=== PATIENT | male | born 1955 | race Caucasian/White ===

== ENCOUNTER → 2020-09-06 12:02 | Outpatient (CLI) | payer OTHER, SELFPAY ==
--- NOTE | ~2020-09-06 | CT_ITS ---
EXAMINATION:CT lung screening DATE: 09/06/2020 12:15 INDICATION: Personal history of tobacco dependence. Smoker who quit 10 years ago with 60 pack year hi story. TECHNIQUE: Computed tomography (CT) of the chest was performed without intravenous contrast. Automate d exposure control and iterative reconstruction technique were employed. The dose-length product (DLP ) was 139.99 mGy-cm. COMPARISON: None. FINDINGS: There is mild emphysema. A calcified right lung nodule and calcified right hilar lymph node s are consistent with old granulomatous disease. There is a 3 mm nodule in left lower lobe. There is a 3 mm nodule at left major fissure. No pleural effusion. The heart size is normal. No pericardial ef fusion. There are coronary artery calcifications. There is mild thoracic spondylosis. IMPRESSION: 1. Lung-RADS category 2: Benign appearance or behavior. Continue annual screening with noncontrast lo w-dose chest CT in 12 months. Reviewed, dictated and finalized at location A. HER HAND IMPRESSION: 1. Lung-RADS category 2: Benign appearance or behavior. Continue annual screeni ng with noncontrast low-dose chest CT in 12 months.
== END ==
PROVIDERS: PCP Internal Medicine; Visit Provider Internal Medicine
DX: Z12.2 Encounter for screening for malignant neoplasm of respiratory organs (principal); Z87.891 Personal history of nicotine dependence
CPT/HCPCS: 71271

== ENCOUNTER → 2020-10-07 12:57 | Outpatient (CLI) | payer OTHER, SELFPAY ==
--- NOTE | ~2020-10-07 | XR_ITS ---
EXAMINATION: XR sacroiliac joints min 3V DATE: 10/07/2020 13:49 INDICATION: Left sacroiliac joint pain. TECHNIQUE: 3 views of the sacroiliac joints were obtained. COMPARISON: None. FINDINGS: Bone alignment is normal. No fracture. There is mild osteoarthritis of the sacroiliac joint s. No evidence of inflammatory arthropathy. IMPRESSION: 1. Mild osteoarthritis of the sacroiliac joints. Reviewed, dictated and finalized at location A.
--- NOTE | ~2020-10-07 | XR_ITS ---
XR lumbar spine 6V w bending 10/07/2020 13:50 Indication: Low back pain Procedure: 7 views lumbar spine including flexion/extension views. Comparison: No prior studies for comparison. Findings: Vertebral body heights are maintained. No fracture, subluxation or dislocation. Mild disc n arrowing at L5-S1. No evidence for spondylolisthesis. Sacral foramen are symmetric. Impression: 1: Mild lumbar spondylosis. Reviewed, dictated and finalized at location B. Impression: 1: Mild lumbar spondylosis.
== END ==
PROVIDERS: PCP Internal Medicine; Visit Provider Internal Medicine
DX: M54.5 Low back pain (principal); M54.32 Sciatica, left side; M47.898 Other spondylosis, sacral and sacrococcygeal region; M47.816 Spondylosis without myelopathy or radiculopathy, lumbar region
CPT/HCPCS: 72114; 72202

== ENCOUNTER → 2020-11-23 10:28 | Outpatient (CLI) | payer OTHER, SELFPAY ==
--- NOTE | ~2020-11-23 | XR_ITS ---
XR UGIAC w barium swallow DATE: 11/23/2020 12:25 INDICATION: Dysphagia. Feels like her bowel stuck in right throat during swallowing TECHNIQUE: Rapid sequence spot radiographs in multiple projections during oral ingestion of barium. A ir-contrast examination of the upper gastrointestinal tract, including spot and overhead radiographs 1.9 minutes fluoroscopy time DAP: [id number] total images COMPARISON: None FINDINGS: There is normal deglutition and esophageal peristalsis. No stricture, mucosal fold thickening, erosion, ulceration or intraluminal mass lesion of the esophag us, stomach or duodenum is evident. Approximately 3.5 x 4.4 cm diverticulum of the second part of the duodenum. IMPRESSION: Duodenal diverticulum; otherwise negative Reviewed, dictated and finalized at Location A. Reviewed, dictated and finalized at location B.
== END ==
PROVIDERS: PCP Internal Medicine; Visit Provider Internal Medicine
DX: R13.10 Dysphagia, unspecified (principal); K57.10 Diverticulosis of small intestine without perforation or abscess without bleeding
CPT/HCPCS: 74246

== ENCOUNTER → 2022-05-11 11:38 | Outpatient (CLI) | payer MEDICARE, SELFPAY ==
--- NOTE | ~2022-05-11 | CT_ITS ---
EXAMINATION: CT lung screening DATE: 05/11/2022 11:47 INDICATION: Personal history of nicotine dependence . Lung cancer screening. TECHNIQUE: Computed tomography (CT) of the chest was performed without intravenous contrast. Addition al 3D reconstructions utilizing coronal maximum intensity projection (MIP) were performed. Automated exposure control and iterative reconstruction technique were employed. The dose-length product was 14 3.58 mGy-cm. COMPARISON: 09/06/2020 FINDINGS: Mild emphysema. Small calcified nodules at the bilateral apices and small calcified right hilar lymph nodes consistent with old granulomatous disease. Mild linear discoid atelectasis at the right lower lobe. Unchanged 3 mm nodule at the superior segment of the left lower lobe. A few unchanged small int rafissural lymph nodes along the left major fissure the largest measuring 3 mm in maximal thickness. No new or enlarging pulmonary nodules, pneumonia, pulmonary edema or pleural effusion. Heart size is normal. Small amount of atherosclerotic coronary artery calcification. No pericardial effusion. Loulou l caliber thoracic aorta. No pathologically enlarged thoracic lymphadenopathy. Visualized upper abdom en is unremarkable. Mild thoracic spondylosis. IMPRESSION: 1. Lung-RADS category 2: Benign appearance or behavior. Continue annual screening with noncontrast lo w-dose chest CT in 12 months. Reviewed, dictated and finalized at location B. IMPRESSION: 1. Lung-RADS category 2: Benign appearance or behavior. Continue annual screeni ng with noncontrast low-dose chest CT in 12 months.
== END ==
PROVIDERS: PCP Internal Medicine; Visit Provider Internal Medicine
DX: Z12.2 Encounter for screening for malignant neoplasm of respiratory organs (principal); Z87.891 Personal history of nicotine dependence
CPT/HCPCS: 71271

== ENCOUNTER 2022-06-25 02:06 | Day surgery (SDC) | payer MEDICARE, SELFPAY ==
--- NOTE | 2022-06-11 11:21 | PC.NURSE ---
Report to the Outpatient Waiting Room, entrance under the green pavilion located off [facility], at time _1130 on date _06/25/22 . Planned Procedure Time: __1330 . Time changes happen often and if your time is changed the preop area will call you the afternoon before. - You and your visitor will be asked to self-screen and do not enter if you have any COVID symptoms. - Only one visitor is requested with a max of two and NO children visitors are allowed at this time. - The patient visitor may be requested to leave or wait in car when not with patient due to distancing restrictions. - A mask is optional within the hospital. Patients may have clear liquids (water, carbonated beverages, clear teas, apple juice) until 3 hours prior to surgery with a maximum of 20 ounces. - No food from midnight until time of surgery - Infants may have breast milk until 4 hours before surgery, formula 6 hours prior to surgery. - Children will be allowed to drink immediately following surgery. If applicable, please bring a bottle or sippy cup to assist with drinking. Juice, water, soda, and popsicles are readily available. For infants on formula, please bring formula the day of surgery. Pacifiers are allowed. Take the following medications with a SIP of water the morning of surgery: __NONE Medications to discontinue per physician _ALL VITAMINS AND SUPPLEMENTS 3 DAYS PRE OP Date to take last dose____06/21/22 HIBICLENS SHOWER MORNING OF SURGERY Please no make-up, nail botswanan, hairspray, perfume, deodorant, or body powder the day of surgery. No jewelry (including any body piercings) or valuables the day of surgery, leave them at home. Please take a shower or bath the night before, or the morning of, surgery with an antibacterial soap. Wear comfortable, loose fitting clothing. Children are encouraged to wear pajamas. - Jewelry must be removed prior to entering the operating room. Rings and piercings that are not removed may be cut off. - The hospital will not accept responsibility for valuables. - Please leave all valuables, including medications, at home the day of surgery. If you are going home after surgery, a licensed shuttle bus driver must drive you home. - NO public transportation without another adult if you receive anesthesia. - We recommend that an adult stay with you for 24 hours following discharge. - We also recommend that you do not drive, make important decision, drink alcoholic beverages, or take any drugs that were not prescribed by your health care provider for at least 24 hours after your discharge time. For Pediatric surgeries, we recommend two adults accompany the child home. Follow any additional instructions given to you from your surgeon. If you or anyone in your household have experienced Covid symptoms in the past week, please notify your surgeon or the nurse liaison at the phone number below for possible testing. Telephone instructions given to __PATIENT and asked if any additional questions and then verbalized understanding. Patient advised to call surgeon office or pre surgery nurse liaison [phone] if any additional questions.
[2022-06-11 11:27] VITALS: BMI 25.8
[2022-06-25] VITALS (9 sets, daily range): BP systolic 95–140; BP diastolic 53–85; PULSE 69–84; RESP 12–16; TEMP 36.6–37.2; O2SAT 97–100
[2022-06-25] MEDS: ACETAMINOPHEN 500 MG TABLET 1000 MG PO (11:54)
[2022-06-25] MEDS: LACTATED RINGERS 1,000 ML 30 ML IV CONT (12:21)
[2022-06-25] MEDS: KETOROLAC 15 MG/ML VIAL (*BKC) IV PUSH (12:22)
--- NOTE | 2022-06-25 12:45 | WPDANESEPPF ---
Anes - Initial Pre Proc Eval Procedure: Operation Date: 06/25/22 13:30 Proposed Procedures p Ventral Hernia Repair with Mesh - Rubén Pendleton DO Date/Time: 06/25/22 12:45 Surgeon: Rubén Pendleton DO Pre Op Diagnosis: ventral hernia Patient Data Age: 67 Gender: M Height: 1.78 m Weight: 81.8 kg Last Vital Signs Temp 37.2 C 06/25/22 11:52 Pulse 78 06/25/22 11:52 Resp 16 06/25/22 11:52 BP 138/71 06/25/22 11:52 Pulse Ox 97 06/25/22 11:52 O2 Del Method Room Air 06/25/22 11:52 Allergies Allergy/AdvReac Type Severity Reaction Status Date / Time No Known Allergies Allergy Verified 06/25/22 12:01 Home Medications Medication Instructions Recorded Confirmed Type cholecalciferol (vitamin D3) 25 25 mcg PO DAILY 11/16/20 06/25/22 History mcg (1,000 unit) capsule folic acid 800 mcg tablet 0.8 mg PO DAILY 11/16/20 06/25/22 History mecobalamin (vitamin B12) 1,000 1,000 mcg sublingual DAILY 11/16/20 06/25/22 History mcg disintegrating tablet,sublingual nystatin-triamcinolone 100,000 1 applic topical BID #30 grams 10/20/21 06/11/22 Rx unit/g-0.1 % topical cream acyclovir 800 mg tablet 800 mg PO .5x/day PRN herpes/cold 05/04/22 06/11/22 Rx sores #50 tabs fluocinolone 0.025 % topical cream 1 applic topical BID #15 grams 05/04/22 06/11/22 Rx Patient hx anesthesia problems: none Family hx anesthesia problems: none Results Review: All pre-operative results and documents have been reviewed as part of the pre-operative evaluation. [facility] Past Medical History Medical History BMI 26.0-26.9,adult BMI 27.0-27.9,adult BPPV (benign paroxysmal positional vertigo) Colon cancer screening Elevated glucose Elevated homocysteine Encounter for preventive health examination Encounter for special screening examination for neoplasm of prostate FHx: esophageal cancer Genital herpes Hearing loss Personal history of nicotine dependence Sciatica Umbilical hernia Vitamin D deficiency Family History Family History Mother Family history of malignant neoplasm of breast in first degree relative Father Family history of malignant neoplasm of esophagus Social History Social History Smoking packs per day: 1.5 Smoking cigarettes per day: 30.0 Years smoked: 40 Smoking pack-years: 60.00 Smoking status: Former smoker Tobacco type: cigarettes Second hand tobacco smoke exposure: Yes Smoking end date: 07/08/18 Alcohol intake: current Drinks per week: 12 Substance use: current Substance use type: marijuana Last use: 06/02/22 Lack of Transportation: No Lack of Food: Never True Current Housing: I Have Housing Concerned About Future Housing: No Difficulty Paying Gas/Electric Bills: No Difficulty Paying for Meds: No Currently Unemployed: No Difficulty w/ Childcare or Family Care: No Living arrangements: alone Gender identity (if verbalized by the patient): Male Spiritual care concerns: No Anes - Eval Final PreProcedure Day of Procedure 06/25/22 12:45 Patient weight: normal Heart: regular rate and rhythm Lungs: decreased breath sounds Airway: Mallampati scale class II Neurological: alert and oriented Last oral intake: >/= 8 hours ASA classification: II Emergent: no Anesthetic plan: proceed Anesthesia type and monitoring: general ETT and standard monitoring Results Review: All pre-operative results and documents have been reviewed as part of the pre-operative evaluation. Informed Consent: The patient's anesthetic plan and its attendant risks and benefits were discussed with the patient/family/POA. Questions were solicited and answers provided to the satisfaction of the patient/family/POA.
--- NOTE | 2022-06-25 12:53 | PM.IMHP ---
H&P: HPI History of Present Illness Date/Time: 06/25/22 12:53 Chief Complaint: Ventral hernia Narrative: This is a 67-year-old man who presents for ventral hernia repair. He denies any changes since last seen in the office. Review of Systems Review of Systems: All systems reviewed & are unremarkable except as noted in HPI and below Constitutional: Constitutional: Denies chills, Denies fever(s), Denies headache(s) and Denies weight loss Eyes: Eyes: Denies change in vision ENT: Denies dizziness, Denies headache(s), Denies neck mass and Denies throat swelling Cardiovascular: Cardiovascular: Denies chest pain, Denies lightheadedness and Denies dyspnea Respiratory: Respiratory: Denies cough, Denies dyspnea and Denies wheezing Gastrointestinal: Gastrointestinal: Denies abdominal pain, Denies change in bowel habits, Denies nausea and Denies vomiting Genitourinary: Genitourinary: Denies hematuria and Denies dysuria Musculoskeletal: Musculoskeletal: Reports as per HPI Integumentary/Breasts: Skin/Breast: Reports as per HPI Neurologic: Denies dizziness and Denies headache(s) Allergic/Immunologic: Allergic/Immunologic: Denies throat swelling and Denies wheezing PMFSH Past Medical History Medical History BMI 26.0-26.9,adult BMI 27.0-27.9,adult BPPV (benign paroxysmal positional vertigo) Colon cancer screening Elevated glucose Elevated homocysteine Encounter for preventive health examination Encounter for special screening examination for neoplasm of prostate FHx: esophageal cancer Genital herpes Hearing loss Personal history of nicotine dependence Sciatica Umbilical hernia Vitamin D deficiency Family History Family History Mother Family history of malignant neoplasm of breast in first degree relative Father Family history of malignant neoplasm of esophagus Social History Social History Smoking packs per day: 1.5 Smoking cigarettes per day: 30.0 Years smoked: 40 Smoking pack-years: 60.00 Smoking status: Former smoker Tobacco type: cigarettes Second hand tobacco smoke exposure: Yes Smoking end date: 07/08/18 Alcohol intake: current Drinks per week: 12 Substance use: current Substance use type: marijuana Last use: 06/02/22 Lack of Transportation: No Lack of Food: Never True Current Housing: I Have Housing Concerned About Future Housing: No Difficulty Paying Gas/Electric Bills: No Difficulty Paying for Meds: No Currently Unemployed: No Difficulty w/ Childcare or Family Care: No Living arrangements: alone Gender identity (if verbalized by the patient): Male Spiritual care concerns: No Meds Home Medications and Allergies Home Medications Medication Instructions Recorded Confirmed Type cholecalciferol (vitamin D3) 25 25 mcg PO DAILY 11/16/20 06/25/22 History mcg (1,000 unit) capsule folic acid 800 mcg tablet 0.8 mg PO DAILY 11/16/20 06/25/22 History mecobalamin (vitamin B12) 1,000 1,000 mcg sublingual DAILY 11/16/20 06/25/22 History mcg disintegrating tablet,sublingual nystatin-triamcinolone 100,000 1 applic topical BID #30 grams 10/20/21 06/11/22 Rx unit/g-0.1 % topical cream acyclovir 800 mg tablet 800 mg PO .5x/day PRN herpes/cold 05/04/22 06/11/22 Rx sores #50 tabs fluocinolone 0.025 % topical cream 1 applic topical BID #15 grams 05/04/22 06/11/22 Rx Allergies Allergy/AdvReac Type Severity Reaction Status Date / Time No Known Allergies Allergy Verified 06/25/22 12:01 Vital Signs Vital Signs - 24 hr 06/25/22 11:52 Temperature 37.2 C Pulse Rate 78 Respiratory Rate 16 Blood Pressure 138/71 Pulse Oximetry 97 Oxygen Delivery Room Air Exam Const: General: no acute distress and alert Orientation/consciousness: patient oriented x
--- NOTE | 2022-06-25 12:55 | WPDHPUPDATE1 ---
History and Physical Update Update Date/Time: 06/25/22 12:55 History and Physical has been reviewed, including an updated exam of the patient. There are NO changes in the patient's condition. Risks, benefits, and alternatives have been discussed and questions answered. Patient agrees to proceed with procedure.
[2022-06-25] MEDS: ceFAZolin 2 GM/D5W 50 ML 2 GM/50 ML BAG IVPB (13:09)
[2022-06-25] MEDS: BUPIVACAINE/EPINEPHRINE 0.5% 10 ML VIAL 30 ML INFILTRATE (13:49)
--- NOTE | 2022-06-25 14:26 | P.OP_ITS ---
Procedure Note - Detailed Date of Procedure 06/25/22 Pre-op Diagnosis ventral hernia Post-op Diagnosis Same Procedure Performed Open ventral hernia repair with 6.[address] hernia patch Surgeon Rubén Pendleton, DO Anesthesia General and Local (0.5% bupivacaine with epinephrine) Indications This is a 67-year-old man presents with a painful bulge just above his umbilicus that has been present for the last 2 years. This initially was not causing him any discomfort, but now he has noticed some pain with activities. He was found to have a ventral hernia superior periumbilical region. Discussions were made with the patient about treatment options and decision was made to proceed with ventral hernia repair with possible mesh. Findings Ventral hernia repair was performed. Patient was found to have a 1.5 cm hernia just superior to the umbilicus. The hernia was repaired using a 6.[address] hernia patch. The mesh was secured with the fascial closure using 0 Ethibond [id number] sutures. No specimens were obtained for pathology. Description of Procedure Procedure as well as risks, benefits, and alternatives were discussed with the patient. Written consent was obtained and placed in chart prior to procedure. Patient was brought back to surgical suite. He was placed supine on operating table. He was then intubated by Anesthesia Department. His abdomen was prepped and draped in sterile fashion using chlorhexidine prep. 0.5% bupivacaine with epinephrine was infiltrated locally around the operative area. A 5 cm curvilinear incision was made just superior to the umbilicus using a 15 blade scalpel. Electrocautery was used for hemostasis and for dissection down through the subcutaneous fat. Hernia sac was encountered and this was carefully freed up from surrounding subcutaneous fat using electrocautery. The hernia sac was freed up all the way down to the level of the fascia, and then it was reduced back down into the abdominal cavity. The umbilical stalk was then lifted off of the fascia with electrocautery. The hernia defect was then measured. This was measuring approximately 15 mm. The decision was made to use a 6.[address] hernia patch. The peritoneum was cleared under the fascia circumferentially around the hernia using blunt dissection and electrocautery. Once a wide enough pocket was created for the mesh, the mesh was then placed within this preperitoneal pocket and laid out flat centered on the hernia defect. The mesh appeared to be sitting in proper position. The anterior surface of the mesh was secured with the fascial closure using 0 Ethibond [id number] sutures. A total of 3 sutures were placed transversely. The sutures were tied down in place. The repair was inspected and appeared secure. 0.5% bupivacaine with e pinephrine was infiltrated around the fascia and subcutaneous space. The umbilical stalk was then reapproximated to the fascia using a 3 0 Vicryl simple interrupted suture. The deep dermis was reapproximated using 3 0 Vicryl simple interrupted sutures, and then the skin was approximated using 4 Monocryl running subcuticular suture. Exofin glue was then applied on top. The patient was then awakened from anesthesia, extubated, and transferred to recovery. Implants 6.[address] hernia patch Estimated Blood Loss -5.0 Complications No immediate complications Condition Stable Disposition Same day [facility] Billing Surgery - Charge Forward: Surgery Billing
== END 2022-06-25 15:59 | disposition home or self-care (01) ==
PROVIDERS: PCP Internal Medicine; Visit Provider Surgery
PROC: 0WQF0ZZ Repair Abdominal Wall, Open Approach (ICD-10-PCS; CPT 49560; principal; 2022-06-25 13:30)
DX: K43.9 Ventral hernia without obstruction or gangrene (principal); E55.9 Vitamin D deficiency, unspecified; B00.9 Herpesviral infection, unspecified; Z87.891 Personal history of nicotine dependence; F12.90 Cannabis use, unspecified, uncomplicated
CPT/HCPCS: 49560; 49568; A9270; C1781; J0690; J1885; J2250; J2405; J2704; J3010; J7120

== ENCOUNTER → 2023-06-03 12:41 | Outpatient (CLI) | payer MEDICARE, SELFPAY ==
--- NOTE | ~2023-06-03 | CT_ITS ---
CT Scan of the Chest without Contrast: Clinical Indication: Lung cancer screening, personal history of nicotine dependence Technique: Contiguous sections were acquired throughout the chest without intravenous contrast. Dose reduction technique was used on this scan by utilizing automated exposure control and iterative recon struction technique. The dose-length product (DLP) was 106.67 mGy-cm. COMPARISON: 05/11/2022, 09/06/2020 Findings: There is no evidence of any significant mediastinal, hilar or axillary lymphadenopathy. The mediastin al soft tissues appear normal. There is no evidence of pleural or pericardial effusion. Ossified right apical granuloma. No other pulmonary nodule seen. Images through the upper abdomen reveal no abnormalities. Impression: Lung RADS 2: Benign appearance. 12 month follow-up screening CT advised. Reviewed, dictated and finalized at [facility]. 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 12 month follow-up screening CT advised.
== END ==
PROVIDERS: PCP Internal Medicine; Visit Provider Internal Medicine
DX: Z12.2 Encounter for screening for malignant neoplasm of respiratory organs (principal); Z87.891 Personal history of nicotine dependence
CPT/HCPCS: 71271

== ENCOUNTER 2025-06-21 06:44 | Day surgery (SDC) | payer MEDICARE, SELFPAY ==
[2025-02-26 09:29] VITALS: BMI 24.0
--- OUTSIDE RECORDS SUMMARY | 2025-06-21 06:50 | XMS_ITS | Clinical Summary ---
Author Organization [facility] Address [address] [place] [id number] Care Team Providers Care Buffing Wheel Former Machine Name Role Phone Unavailable Primary Care Provider Unavailabl e Social History Tobacco Use Types Packs/Day Years Used Date Smoking Tobacco: Never Assessed Sex and Gender Information Value Date Recorded Sex Assigned at Not on file Legal Sex Male 7:19 PM CDT Gender Identity Not on file Sexual Orientation Not on file Plan of Treatment Health Maintenance Due Date Last Done Comments Colorectal Cancer Screening Colonoscopy (10 Years) 1955 Hepatitis C 1975 DTaP, Tdap and Td Vaccines ( 1 - Tdap) 1976 Pneumococcal Vaccine: 50+ Ye ars (1 of 1 - PCV) 2007 Zoster Vaccines (1 of 2) 2007 COVID-19 Vaccine ( - 2024-2 6 season) 2025 Influenza Adult (#1) 2025 RSV Immunization or 60+ Years (1 - 1-dose 75+ series) 2032 Hepatitis A Vaccines Aged Out No long er eligible based on patient's age to complete this topic Meningococcal B Vaccine Aged Out No l onger eligible based on patient's age to complete this topic Meningococcal Vaccine Aged Out No win trevor eligible based on patient's age to complete this topic RSV Immunizations Under 20 Months Aged Out No longer eligible based on patient's age to complete this topic
[2025-06-21 07:00] VITALS: BP 141/79; PULSE 64; RESP 18; TEMP 36.8; O2SAT 97
[2025-06-21] MEDS: LACTATED RINGERS 1,000 ML 150 ML IV CONT (07:25)
--- NOTE | 2025-06-21 07:34 | P.PNAN_ITS ---
Anes - Initial Pre Proc Eval Procedure: Operation Date: 06/21/25 08:30 Proposed Procedures p Diagnostic Colonoscopy - Rick Stone MD Date/Time: 06/21/25 07:34 Surgeon: Rick Stone MD Pre Op Diagnosis: Other fecal abnormalities Patient Data Age: 70 Gender: M Height: 1.78 m Weight: 75.2 kg Last Vital Signs Temp 98.3 F 06/21/25 07:00 Pulse 64 06/21/25 07:00 Resp 18 06/21/25 07:00 BP 141/79 H 06/21/25 07:00 Pulse Ox 97 06/21/25 07:00 O2 Del Method Room Air 06/21/25 07:00 Allergies Allergy/AdvReac Type Severity Reaction Status Date / Time No Known Allergies Allergy Verified 06/21/25 07:21 Home Medications ?Medication ?Instructions ?Recorded ?Confirmed ?Type cholecalciferol (vitamin D3) 25 25 mcg PO DAILY 06/21/25 History mcg (1,000 unit) capsule folic acid 800 mcg tablet 0.8 mg PO DAILY 11/16/20 History mecobalamin (vitamin B12) 1,000 1,000 mcg sublingual D AILY 11/16/20 06/21/25 History mcg disintegrating tablet,sublingual acyclovir 800 mg tablet 800 mg PO .5x/day PRN herpes /cold 05/04/22 06/21/25 Rx sores #50 tabs nystatin-triamcinolone 100,000 1 applic topical BID TN N rash #30 05/23/23 06/21/25 Rx unit/g-0.1 % topical cream grams Patient hx anesthesia problems: none Family hx anesthesia problems: none Results Review: All pre-operative results and documents have been reviewed as part of the pre- operative evaluation. [facility] Past Medical History Medical History BMI 24.0-24.9, adult BMI 25.0-25.9,adult BMI 26.0-26.9,adult BMI 27.0-27.9,adult BPPV (benign paroxysmal positional vertigo) Colon cancer screening Elevated glucose Elevated homocysteine Encounter for Medicare annual wellness exam Encounter for other specified surgical aftercare Encounter for preventive health examination Encounter for routine adult health examination with abnormal findings FHx: esophageal cancer Hearing loss Personal history of nicotine dependence Pre-diabetes Sciatica Skin lesion Umbilical hernia Vitamin D deficiency Surgical History Surgical History Hx of ventral hernia repair Open ventral hernia repair with mesh on 06/25/22. Family History Family History Mother Family history of malignant neoplasm of breast in first degree relative Father Family history of malignant neoplasm of esophagus Social History Social History Smoking packs per day: 1.5 Smoking cigarettes per day: 30.0 Years smoked: 40 Smoking pack-years: 60.00 Smoking status: Former smoker Tobacco type: cigarettes Second hand tobacco smoke exposure: Yes Smoking end date: 07/08/18 Alcohol intake: current Drinks per week: 20 Substance use: current Substance use type: marijuana Other substance usage details: BIWEEKLY Lack of Transportation: No Lack of Food: Never True Current Housing: I Have Housing Concerned About Future Housing: No Difficulty Paying Gas/Electric Bills: No Difficulty Paying for Meds: No Currently Unemployed: No Difficulty w/ Childcare or Family Care: No Living arrangements: alone Gender identity (if verbalized by the patient): Male Spiritual care concerns: No Anes - Eval Final PreProcedure Day of Procedure 06/21/25 07:34 Heart: regular rate and rhythm Lungs: clear to auscultation Airway: Mallampati scale class II Neurological: alert and oriented Last oral intake: >/= 8 hours ASA classification: II Anesthetic plan: proceed Anesthesia type and monitoring: general Results Review: All pre-operative results and documents have been reviewed as part of the pre- operative evaluation. Informed Consent: The patient's anesthetic plan and its attendant risks and benefits were discussed with the patient/family/POA. Questions were solicited and answers provided to the satisfaction of the patient/family/POA.
--- NOTE | 2025-06-21 08:37 | PM.IMHP2 ---
H&P: HPI History of Present Illness Date/Time: 06/21/25 08:37 Chief Complaint: Screening colonoscopy Narrative: This is the patient's second colonoscopy. He had another colonoscopy 13 y ago. There are no GI symptoms and there is no family history of colorectal cancer. the patient had a recent positive Cologuard test. Review of Systems Review of Systems: All systems reviewed & are unremarkable except as noted in HPI and below PMFSH Past Medical History Medical History BMI 24.0-24.9, adult BMI 25.0-25.9,adult BMI 26.0-26.9,adult BMI 27.0-27.9,adult BPPV (benign paroxysmal positional vertigo) Colon cancer screening Elevated glucose Elevated homocysteine Encounter for Medicare annual wellness exam Encounter for other specified surgical aftercare Encounter for preventive health examination Encounter for routine adult health examination with abnormal findings FHx: esophageal cancer Hearing loss Personal history of nicotine dependence Pre-diabetes Sciatica Skin lesion Umbilical hernia Vitamin D deficiency Surgical History Surgical History Hx of ventral hernia repair Open ventral hernia repair with mesh on 06/25/22. Family History Family History Mother Family history of malignant neoplasm of breast in first degree relative Father Family history of malignant neoplasm of esophagus Social History Social History Smoking packs per day: 1.5 Smoking cigarettes per day: 30.0 Years smoked: 40 Smoking pack-years: 60.00 Smoking status: Former smoker Tobacco type: cigarettes Second hand tobacco smoke exposure: Yes Smoking end date: 07/08/18 Alcohol intake: current Drinks per week: 20 Substance use: current Substance use type: marijuana Other substance usage details: BIWEEKLY Lack of Transportation: No Lack of Food: Never True Current Housing: I Have Housing Concerned About Future Housing: No Difficulty Paying Gas/Electric Bills: No Difficulty Paying for Meds: No Currently Unemployed: No Difficulty w/ Childcare or Family Care: No Living arrangements: alone Gender identity (if verbalized by the patient): Male Spiritual care concerns: No Meds Home Medications and Allergies Home Medications ?Medication ?Instructions ?Recorded ?Confirmed ?Type cholecalciferol (vitamin D3) 25 25 mcg PO DAILY 11/16/20 06/21/25 History mcg (1,000 unit) capsule folic acid 800 mcg tablet 0.8 mg PO DAILY 11/16/20 06/21/25 History mecobalamin (vitamin B12) 1,000 1,000 mcg sublingual DAILY 11/16/20 06/21/25 History mcg disintegrating tablet,sublingual acyclovir 800 mg tablet 800 mg PO .5x/day PRN herpes/cold 05/04/22 06/21/25 Rx sores #50 tabs nystatin-triamcinolone 100,000 1 applic topical BID PRN rash #30 05/23/23 06/21/25 Rx unit/g-0.1 % topical cream grams Allergies Allergy/AdvReac Type Severity Reaction Status Date / Time No Known Allergies Allergy Verified 06/21/25 07:21 Vital Signs Vital Signs - 24 hr 06/21/25 07:00 Temperature 98.3 F Pulse Rate 64 Respiratory Rate 18 Blood Pressure 141/79 H Pulse Oximetry 97 Oxygen Delivery Room Air Exam Const: General: cooperative and healthy appearing Resp: Effort & Inspection: normal respiratory effort and able to speak in complete sentences Auscultation: clear to auscultation bilaterally Cardio: Rate: regular rate Rhythm: regular rhythm GI: Inspection: normal to inspection GI Palp: No No hepatosplenomegaly present Auscultation: normal bowel sounds Rectal Exam: deferred Skin: General skin exam: normal color Psych: Appearance: grossly normal Mental Status: mental status grossly normal Assessment and Plan Assessment and plan (1) Colon cancer screening: Code(s): Z12.11 - Encounter for screening for malignant neoplasm of colon Status: Acute Assessment and Plan: The patient is deemed a good candidate for the procedure. Consent signed. Will proceed.
--- NOTE | 2025-06-21 08:41 | WPDANESPN ---
Anes - Prog Note Post-Op Date/Time: 06/21/25 08:41 Vital Signs: Last Vital Signs Temp 98.3 F 06/21/25 07:00 Pulse 64 06/21/25 07:00 Resp 18 06/21/25 07:00 BP 141/79 H 06/21/25 07:00 Pulse Ox 97 06/21/25 07:00 O2 Del Method Room Air 06/21/25 07:00 Pain Score (VAS): no Patient Feedback: Patient satisfied with anesthetic care.
[2025-06-21] MEDS: SIMETHICONE ORAL SUSPENSION 20 MG/0.3 ML 30 ML BOTTLE 0.6 ML IRRIGATION (08:52)
[2025-06-21 09:15] VITALS: BP 120/75; PULSE 68; RESP 16; O2SAT 98
[2025-06-21 09:25] VITALS: BP 134/81; PULSE 70; RESP 18; O2SAT 100
[2025-06-21 09:35] VITALS: BP 131/81; PULSE 69; RESP 18; O2SAT 100
== END 2025-06-21 09:50 | disposition home or self-care (01) ==
PROVIDERS: Referring Provider Internal Medicine; Visit Provider Internal Medicine Gastroenterology
PROC: 0DJD8ZZ Inspection of Lower Intestinal Tract, Via Natural or Artificial Opening Endoscopic (ICD-10-PCS; CPT 45378; principal; 2025-06-21 08:30)
DX: Z12.11 Encounter for screening for malignant neoplasm of colon (principal); R19.5 Other fecal abnormalities; K63.5 Polyp of colon; K57.30 Diverticulosis of large intestine without perforation or abscess without bleeding; K64.8 Other hemorrhoids
CPT/HCPCS: 45385

== ENCOUNTER 2025-06-21 11:36 | Outpatient (NON) | payer MEDICARE, SELFPAY ==
--- NOTE | 2025-06-21 | S_PTH ---
PATIENT: Mark Segura LOC: [facility] U#:[id number] AGE/SX: 70/M ROOM: RE06/21/[address]: Rick Stone MD : 1955 BED: DIS: 06/21/2025 SPEC #: [id number] RECD: 06/21/25 13:31 STATUS: JOSHUA REVikas #: [id number] JOSS: 06/21/25 00:[address]: Rick Stone DEPT: [facility] Surgical RECD BY: Trupti Smith ENTERED: 06/21/25 13:34 SP TYPE: Surgical OTHR DR: UNKNOWN,DOCTOR Tissues: A - Colon Polypectomy Procedures: Hematoxylin and Eosin Stain Gross and Microscopic Level 4
== END 2025-06-21 11:37 | disposition home or self-care (01) ==
LOC: ANHLAB 11:37
PROVIDERS: Visit Provider Internal Medicine Gastroenterology
DX: R19.5 Other fecal abnormalities (principal)
CPT/HCPCS: 88305